=== PATIENT | female | born 1980 | race Caucasian/White ===

== ENCOUNTER 2022-09-20 14:42 | Emergency (ER) | payer OTHER ==
[~2022-09-20] VITALS: Ht 172.7 cm; Wt 75.0 kg
[~2022-09-20 14:42] MED LIST: HYDR-4353 PO; VALA10002 PO
[2022-09-20 15:06] VITALS: BP 143/92
== END 2022-09-20 16:51 | disposition home or self-care (01) ==
LOC: ER 14:43
DX: S80.02XA Contusion of left knee, initial encounter (principal); S90.32XA Contusion of left foot, initial encounter; I10 Essential (primary) hypertension; Z91.040 Latex allergy status; V09.9XXA Pedestrian injured in unspecified transport accident, initial encounter; Y93.89 Activity, other specified; Y92.89 Other specified places as the place of occurrence of the external cause; Y99.8 Other external cause status
CPT/HCPCS: 73564; 73630; 99284